=== PATIENT | female | born 1985 | race Hispanic/Latino ===

== ENCOUNTER → 2016-05-26 | Outpatient (CLI) | payer BC ==
[2016-05-26 13:58] LABS: CONTROL LINE HCG INT CTR LINE PRESENT
== END ==
LOC: M LAB 12:24
PROVIDERS: ATTEND Nurse Practitioner Women's Health
DX: N92.6 Irregular menstruation, unspecified (principal)

== ENCOUNTER → 2016-07-07 | Outpatient (CLI) | payer BC ==
--- NOTE | 2016-07-07 16:31 | REP ---
Clinical: Left lower quadrant pelvic pain . Technique: Transabdominal pelvic ultrasound followed by transvaginal examination for better evaluation of the endometrium and adnexa with color Doppler evaluation of the ovaries. Findings: Bladder is unremarkable and measures 8.0 x 5.8 x 9.3 cm . Heterogeneous anteverted uterus measures 7.7 x 3.8 x 4.6 cm . The endometrial complex measures 6.2 mm thickness. No discrete uterine or endometrial abnormalities are appreciated. Bilateral ovaries are normal in appearance and vascularity without evidence for torsion. Right ovary measures 2.9 x 2.3 x 2.0 cm ; R I = 0.53 . Left ovary measures 3.4 x 2.3 x 2.7 cm ; R I = 0.41 . Small amount of pelvic free fluid. No adnexal mass . Impression: 1. Normal ovaries without torsion. 2. Small amount of free fluid in the pelvis nonspecific. 3. Heterogeneous years without focal abnormality. Signed by Shant Pickard MD 07/07/2016 04:22 P
[2016-07-07 17:26] LABS: FREE T4 0.84 NG/DL (0.76-1.46)
[2016-07-07 17:46] LABS: PROLACTIN 9.2 NG/ML
== END ==
LOC: M RAD 15:39 → M LAB 15:39
PROVIDERS: ATTEND Nurse Practitioner Women's Health
DX: R18.8 Other ascites (principal)